=== PATIENT | female | born 1995 | race Caucasian/White ===

== ENCOUNTER 2018-01-10 03:00 | Emergency (ER) | payer OTHER ==
[2018-01-10 04:24] LABS: URINE PH (Dip) POC 7.5 (5.0-8.5)
[2018-01-10 04:24] LABS: URINE BLOOD (Dip) POC Trace-lysed (NEGATIVE); URINE GLUCOSE (Dip) POC Negative (NEGATIVE); URINE KETONES (Dip) POC Negative (NEGATIVE); URINE LEUKOCYTE EST (Dip) POC 3+ (NEGATIVE); URINE NITRITE (Dip) POC Negative (NEGATIVE); URINE TOTAL PROTEIN POC Negative (NEGATIVE)
[2018-01-10] MEDS: KETOROLAC 30 MG INJ IM (04:25)
[2018-01-10] MEDS: CYCLOBENZAPRINE 10 MG TAB PO (04:26)
== END 2018-01-10 04:45 | disposition home or self-care (01) ==
LOC: E/R 03:00
DX: M62.830 Muscle spasm of back (principal)
CPT/HCPCS: 81003; 81025; 96372; 99284-25

== ENCOUNTER 2018-01-24 | Emergency (ER) | payer SELFPAY, OTHER | END 2018-01-24 02:54 | disposition left against medical advice (07) | LOC: FTE | DX: Z53.21 Procedure and treatment not carried out due to patient leaving prior to being seen by health care provider (principal) ==